=== PATIENT | male | born 1985 | race Caucasian/White ===

== ENCOUNTER 2017-02-21 15:38 | Emergency (ER) | payer OTHER ==
[~2017-02-21] VITALS: Ht 162.6 cm; Wt 85.3 kg
[~2017-02-21 15:38] MED LIST: CIPRO HC OTIC S10 ML LEFT EAR; CLEOCIN300 MG PO; METHADONE10 MG PO; METHADOSE40 MG PO; Methadone PO; NAPROSYN500 MG PO; VENTOLIN HFA18 GM IH; ZITHROMAX Z-PA250 MG PO; ZOFRAN4 MG PO; oxyCODONE PO
[2017-02-21] MEDS ORDERED: FLEXERIL10 MG PO (20:09)
[2017-02-21] MEDS ORDERED: PERCOCET 5/31 TABLET PO (20:22)
[2017-02-21] MEDS ORDERED: MOTRIN800 MG PO (20:22)
[2017-02-21 20:29] VITALS: BP 137/94
== END 2017-02-21 20:49 | disposition home or self-care (01) ==
LOC: EME 15:38
DX: M54.5 Low back pain (principal); F17.200 Nicotine dependence, unspecified, uncomplicated
CPT/HCPCS: 72131; 99281; 99284; J1885

== ENCOUNTER → 2017-04-10 | Outpatient (CLI) | payer OTHER ==
[~2017-04-10] VITALS: Ht 180.3 cm; Wt 84.5 kg
[~2017-04-10] MED LIST changes: +ADVIL,NUPRIN,M200 MG PO; +DURAGESIC50 MCG TD; +FLEXERIL10 MG PO; +MOTRIN800 MG PO; +PERCOCET 5/31 TABLET PO
[2017-04-10 13:14] LABS: PROTHROMBIN TIME 9.8 (9.2-11.2); PTT 32.1 (25-32)
== END | disposition home or self-care (01) ==
LOC: OPR 11:44 → RAD 11:45 → EDSTATUS 12:45 → RAD 12:45
PROVIDERS: Internal Medicine
DX: M46.46 Discitis, unspecified, lumbar region (principal); M54.5 Low back pain; G89.29 Other chronic pain; F17.210 Nicotine dependence, cigarettes, uncomplicated; F19.10 Other psychoactive substance abuse, uncomplicated
CPT/HCPCS: 77012; 85610; 85730; 87070; 87075; 87106; 87205; J1170; J3010

== ENCOUNTER 2017-04-13 17:22 | Emergency (ER) | payer OTHER ==
[~2017-04-13] VITALS: Ht 180.3 cm; Wt 83.6 kg
[~2017-04-13 17:22] MED LIST changes: -DURAGESIC50 MCG TD
[2017-04-13] MEDS ORDERED: PERCOCET 5/31 TABLET PO (22:01)
[2017-04-13] MEDS ORDERED: DURAGESIC50 MCG TD (22:03)
[2017-04-13 22:12] VITALS: BP 131/96
== END 2017-04-13 22:13 | disposition home or self-care (01) ==
LOC: EME 17:22
DX: M54.5 Low back pain (principal); G89.29 Other chronic pain; M46.26 Osteomyelitis of vertebra, lumbar region; M46.46 Discitis, unspecified, lumbar region; F17.200 Nicotine dependence, unspecified, uncomplicated
CPT/HCPCS: 99281; 99284

== ENCOUNTER → 2017-04-13 | Outpatient (CLI) | payer OTHER | END | disposition home or self-care (01) | LOC: PICC 14:08 | DX: M46.40 Discitis, unspecified, site unspecified (principal) | CPT/HCPCS: 76937 ==

== ENCOUNTER 2017-05-24 21:14 | Inpatient (IN) | payer OTHER ==
[~2017-05-24] VITALS: Ht 180.3 cm; Wt 87.9 kg
[~2017-05-24 21:14] MED LIST changes: +DIFLUCAN200 MG PO; +DURAGESIC50 MCG TD; +NEURONTIN300 MG PO; +OXAYDO5 MG PO
[2017-05-24 22:32] LABS: CHLORIDE 107 mEq/L (99-109); POTASSIUM 3.8 mEq/L (3.7-5.4); SODIUM 138 mEq/L (136-147)
[2017-05-24 22:34] LABS: GLUCOSE 99 mg/dL (70-99)
[2017-05-24 22:35] LABS: ANION GAP 7 MEQ/L (2-14)
[2017-05-24 22:38] LABS: GFR ESTIMATE (CALCULATED) > 59 mL/min/; UREA NITROGEN (BUN) 10 mg/dL (9-23)
[2017-05-24 22:46] LABS: TROP-I INTERPRETATION NEGATIVE; TROPONIN-I < 0.01 ng/mL (0.0-0.30)
[2017-05-24 22:51] LABS: HEMATOCRIT 41.7 % (38.0-50.0); MCH 31.4 PG (29.0-34.0); MCHC 32.6 G/DL (30.0-36.0); MCV 96.3 FL (86-99); MEAN PLAT.VOLUME 8.7 uM^3 (9.0-12.4); PLATELET COUNT 230 K/uL (156-360); RBC DIS.WIDTH-CV 16.8 % (11.8-14.6); RED BLOOD COUNT 4.33 M/uL (4.00-5.50)
[2017-05-25] MEDS ORDERED: GABAPENTIN300 MG PO ×2 (00:58→00:59)
[2017-05-25] MEDS ORDERED: PERCOCET 5/31 TABLET PO (00:59)
[2017-05-25] MEDS ORDERED: VANCOMYCIN1 GM/250 M IV (01:01)
[2017-05-25 04:16] VITALS: BP 143/96
[2017-05-25 07:30] VITALS: BP 121/75
[2017-05-25 11:07] LABS: HEMATOCRIT 39.1 % (38.0-50.0); MCH 32.5 PG (29.0-34.0); MCV 98.5 FL (86-99); MEAN PLAT.VOLUME 8.9 uM^3 (9.0-12.4); PLATELET COUNT 179 K/uL (156-360); RBC DIS.WIDTH-CV 17.4 % (11.8-14.6); RBC DIS.WIDTH-SD 57.9 % (39-53); RED BLOOD COUNT 3.97 M/uL (4.00-5.50); WHITE BLOOD COUNT 6.2 K/uL (4.1-10.2)
[2017-05-25 11:36] LABS: ANION GAP 5 MEQ/L (2-14); CHLORIDE 103 MEQ/L (99-109); POTASSIUM 4.2 MEQ/L (3.7-5.4); SAMPLE HEMOLYSIS CHECK 0; SAMPLE ICTERIC CHECK 0; SAMPLE LIPEMIA CHECK 0; SODIUM 137 MEQ/L (136-147)
[2017-05-25 11:40] VITALS: BP 130/78
[2017-05-25 11:41] LABS: GFR ESTIMATE (CALCULATED) > 59 mL/min/; GLUCOSE 89 mg/dL (70-99); UREA NITROGEN (BUN) 10 mg/dL (9-23)
[2017-05-25 15:14] VITALS: BP 124/85
[2017-05-25 15:16] LABS: TROP-I INTERPRETATION NEGATIVE; TROPONIN-I < 0.01 ng/mL (0.0-0.30)
[2017-05-25 19:16] LABS: AMPHETAMINES QUANT VALUE 0 NG/ML; BARBITUATES QUANT VALUE 0 NG/ML; BENZODIAZEPINES QUANT VALUE 0 NG/ML; BENZODIAZEPINES, URINE SCREEN Negative (200 ng/mL); MARIJUANA QUANT VALUE 0 NG/ML; PHENCYCLIDINE QUANT VALUE 0 NG/ML
[2017-05-25 19:45] LABS: TROP-I INTERPRETATION NEGATIVE; TROPONIN-I < 0.01 ng/mL (0.0-0.30)
[2017-05-26 00:20] VITALS: BP 117/80
[2017-05-26 02:06] LABS: TROP-I INTERPRETATION NEGATIVE; TROPONIN-I < 0.01 ng/mL (0.0-0.30)
[2017-05-26 06:00] LABS: HEMATOCRIT 38.5 % (38.0-50.0); MCH 31.7 PG (29.0-34.0); MCHC 32.2 G/DL (30.0-36.0); MCV 98.5 FL (86-99); MEAN PLAT.VOLUME 9.5 uM^3 (9.0-12.4); PLATELET COUNT 203 K/uL (156-360); RBC DIS.WIDTH-CV 17.1 % (11.8-14.6); RBC DIS.WIDTH-SD 57.8 % (39-53); RED BLOOD COUNT 3.91 M/uL (4.00-5.50); WHITE BLOOD COUNT 4.9 K/uL (4.1-10.2)
[2017-05-26 08:01] VITALS: BP 115/81
[2017-05-26] MEDS ORDERED: DIFLUCAN200 MG PO (10:43)
[2017-05-26] MEDS ORDERED: BACTRIM,SEPT1 TABLET PO (10:43)
[2017-05-26] MEDS ORDERED: XARELTO15 MG PO ×3 (10:44→11:36)
[2017-05-26] MEDS ORDERED: XARELTO20 MG PO (11:34)
[2017-05-26 16:11] VITALS: BP 131/80
== END 2017-05-26 17:08 | disposition home or self-care (01) | DRG 299 ==
LOC: EME 21:14 → EDOF 05-25 02:45 → 5EAST 05-25 02:45 → ENRESERV 05-25 02:46 → 5EAST 05-25 04:10 → ENPENDDIS 05-26 → 5EAST 05-26 17:08
PROVIDERS: Emergency Medicine; Hospitalist; Physician Assistant
PROC: 02PYX3Z Removal of Infusion Device from Great Vessel, External Approach (ICD-10-PCS; principal; 2017-05-26)
DX: I82.621 Acute embolism and thrombosis of deep veins of right upper extremity (principal); I26.99 Other pulmonary embolism without acute cor pulmonale; T82.868A Thrombosis due to vascular prosthetic devices, implants and grafts, initial encounter; I71.2 Thoracic aortic aneurysm, without rupture; M46.26 Osteomyelitis of vertebra, lumbar region; R94.31 Abnormal electrocardiogram [ECG] [EKG]; Y84.8 Other medical procedures as the cause of abnormal reaction of the patient, or of later complication, without mention of misadventure at the time of the procedure; F17.210 Nicotine dependence, cigarettes, uncomplicated; M46.46 Discitis, unspecified, lumbar region; F19.10 Other psychoactive substance abuse, uncomplicated; F10.21 Alcohol dependence, in remission; Z87.820 Personal history of traumatic brain injury; Z91.19 Patient's noncompliance with other medical treatment and regimen; Z79.01 Long term (current) use of anticoagulants
CPT/HCPCS: 36593; 71275; 80048; 80202; 80306 90; 83735; 84100; 84484; 85027; 85651; 86140; 93005; 93306; 93971; 96365; 96365 XE; 96366; 99281; 99285; G0480; J1200; J1650; J2997; J3370